=== PATIENT | female | born 1965 | race African-American/Black ===

== ENCOUNTER 2016-12-24 14:37 | Emergency (ER) | payer SELFPAY ==
--- NOTE | ~2016-12-24 | CR72 ---
[facility] A Service of [facility] RADIOLOGY TEXT RESULTS PATIENT: NEVAEH DAWN LOCATION: [place] : 69 UNIT #: [id number] AGE: [address]: Agnes Caro MD SEX: F ORDER DR: [id number] [facility] [address] [facility] [place], [place] [address] [id number] MR#: [id number] Acc #: [id number] NAME: NEVAEH DAWN : 1965 SEX: F STUDY DATE/TIME: 12/24/2016 14:12 UNIT: [facility] ROOM: STUDY DESCRIPTION: CR Chest Single View Portable Attending Physician: Agnes Caro M.D. Ordering Physician: Agnes Caro M.D. Primary Care Physician: Maureen Soler M.D. MEDICAL IMAGING REPORT This report is preliminary unless electronic signature is present EXAM Chest, portable. DATE OF EXAM 12/24/2016, 1412 hours. CLINICAL HISTORY 51-year-old woman with complaint of cough, congestion and diarrhea for 2 days. History of asthma and bronchitis. COMPARISON 02/27/2015 FINDINGS Portable upright chest demonstrates heart size at the upper limits of normal without change. Mediastinal and hilar contours are normal. There is horizontal linear to band-like density in both mid lungs most consistent with atelectasis or scar. No definite pneumonia, edema or effusion. IMPRESSION 1. Stable heart size at the upper limits of normal. 2. Horizontal bandlike density in both mid lungs most consistent with atelectasis or scar. No definite pneumonia, edema or effusion. Dictated by... Leigh Davis M.D. THIS IS AN ELECTRONICALLY VERIFIED REPORT Leigh Davis M.D. at 12/27/2016 9:17 AM SMM/jt [facility] A Service of [facility] RADIOLOGY TEXT RESULTS PATIENT: NEVAEH DAWN LOCATION: [facility] : 69 UNIT #: [id number] AGE: [address]: Agnes Caro MD SEX: F ORDER DR: TD: 12/24/2016 20:43 JOB #: [id number] MEDICAL IMAGING REPORT COPY
[2016-12-24 14:28] LABS: INFLUENZA A NEG (NEG); INFLUENZA B NEG (NEG)
[~2016-12-24 14:37] MED LIST: ALB/IPRATROPIUM/1 E1 INH; AZITHROMYCIN250 MG PO; BACTRIM DS TABL1 TA1 PO; BENZONATATE PO; CIPRO PO; CLEOCIN HCL300 M1 PO; COMBIVENT INH14.7 GM INH; COMBIVENT MININEB INH; COMBIVENT U/D3 ML INH; IRON325 ( 651 PO; LASIX20 MG PO; LEVAQUIN750 M1 PO; MEDROL4 MG/DOSE- PO; PEPCID AC20 M1 PO; PEPCID PO; PREDNISONE; PREDNISONE PO; PREDNISONE10 MG/DOSE PO; PROVERA10 MG PO; ROBITUSSIN A-C-S1 ML PO; SYMBICORT INH; ZESTRIL40 MG PO; ZITHROMAX PO; ZITHROMAX1 G/PKT PO
== END 2016-12-24 15:05 | disposition home or self-care (01) ==
LOC: CED 14:37
PROVIDERS: Student in an Organized Health Care Education/Training Program
DX: J10.1 Influenza due to other identified influenza virus with other respiratory manifestations (principal); J45.909 Unspecified asthma, uncomplicated
CPT/HCPCS: 71010; 87651; 87804; 94640; 99283

== ENCOUNTER 2017-05-09 21:24 | Emergency (ER) | payer OTHER | END 2017-05-10 00:18 | disposition home or self-care (01) | LOC: CED 21:24 | DX: M54.5 Low back pain (principal); I10 Essential (primary) hypertension; J45.909 Unspecified asthma, uncomplicated; F17.210 Nicotine dependence, cigarettes, uncomplicated | CPT/HCPCS: 99283 ==